=== PATIENT | female | born 1940 | race Caucasian/White ===

== ENCOUNTER 2021-04-27 19:00 | Observation (INO) ==
[2021-04-28] MEDS: Enoxaparin 40 MG/0.4 ML SYR SUBCUT SCH ×2 (01:23→21:24)
[2021-04-28] MEDS ORDERED: RISPERIDONE 0.25 MG PO SCH (09:00)
[2021-04-28] MEDS: Cholecalciferol (VIT D3) 1,000 unit TAB PO SCH (10:19)
[2021-04-28] MEDS: Aspirin EC 81 mg TAB.EC (enteric coated) PO SCH (10:20)
[2021-04-29] MEDS: Cholecalciferol (VIT D3) 1,000 unit TAB PO SCH (10:29)
[2021-04-29] MEDS: Aspirin EC 81 mg TAB.EC (enteric coated) PO SCH (10:31)
[2021-04-29] MEDS: Enoxaparin 40 MG/0.4 ML SYR SUBCUT SCH (22:24)
[2021-04-30] MEDS: Aspirin EC 81 mg TAB.EC (enteric coated) PO SCH (11:27)
[2021-04-30] MEDS: Cholecalciferol (VIT D3) 1,000 unit TAB PO SCH (11:28)
[2021-04-30 11:56] VITALS: BP 145/74
== END 2021-04-30 15:11 | disposition swing bed (61) ==
LOC: ED 19:00 → EDHOLD 19:00 → SSU 22:32
PROVIDERS: ADMIT Hospitalist; ATTEND Hospitalist

== ENCOUNTER 2021-04-30 14:46 | Inpatient (IN) ==
[2021-04-30] MEDS ORDERED: Enoxaparin 40 MG/0.4 ML SYR SUBCUT SCH ×2 (16:00)
[2021-04-30] MEDS: Enoxaparin 40 MG/0.4 ML SYR SUBCUT SCH (20:46)
[2021-05-01] MEDS: Aspirin EC 81 mg TAB.EC (enteric coated) PO SCH (09:41)
[2021-05-01] MEDS: Cholecalciferol (VIT D3) 1,000 unit TAB PO SCH (09:41)
[2021-05-01] MEDS: Enoxaparin 40 MG/0.4 ML SYR SUBCUT SCH (20:31)
[2021-05-02] MEDS: Aspirin EC 81 mg TAB.EC (enteric coated) PO SCH (15:30)
[2021-05-02] MEDS: Cholecalciferol (VIT D3) 1,000 unit TAB PO SCH (15:31)
[2021-05-02] MEDS: Enoxaparin 40 MG/0.4 ML SYR SUBCUT SCH (20:51)
[2021-05-03] MEDS: Aspirin EC 81 mg TAB.EC (enteric coated) PO SCH (10:50)
[2021-05-03] MEDS: Cholecalciferol (VIT D3) 1,000 unit TAB PO SCH (10:52)
[2021-05-03] MEDS: Enoxaparin 40 MG/0.4 ML SYR SUBCUT SCH (20:43)
[2021-05-04] MEDS: Cholecalciferol (VIT D3) 1,000 unit TAB PO SCH (09:26)
[2021-05-04] MEDS: Aspirin EC 81 mg TAB.EC (enteric coated) PO SCH (09:26)
[2021-05-04] MEDS: Enoxaparin 40 MG/0.4 ML SYR SUBCUT SCH (23:05)
[2021-05-05] MEDS: Aspirin EC 81 mg TAB.EC (enteric coated) PO SCH (09:30)
[2021-05-05] MEDS: Cholecalciferol (VIT D3) 1,000 unit TAB PO SCH (09:31)
[2021-05-05] MEDS: Enoxaparin 40 MG/0.4 ML SYR SUBCUT SCH (23:05)
[2021-05-06 08:40] LABS: Mean Platelet Volume 9.5 fL (7.4-10.4); Platelet Count 265 10^3/uL (150-450)
[2021-05-06 08:57] LABS: eGFR CKD-EPI 80.2 (>60)
[2021-05-06] MEDS: Aspirin EC 81 mg TAB.EC (enteric coated) PO SCH (09:54)
[2021-05-06] MEDS: Cholecalciferol (VIT D3) 1,000 unit TAB PO SCH (09:54)
[2021-05-06] MEDS: Enoxaparin 40 MG/0.4 ML SYR SUBCUT SCH (21:12)
[2021-05-07 12:21] LABS: ABS Eosinophils 0.1 10^3/ul (0-0.6); ABS Lymphocytes 0.9 10^3/ul (1.0-4.8); ABS Monocytes 0.6 10^3/ul (0-0.8); ABS Neutrophils 4.8 10^3/ul (1.5-7.7); Eosinophil % 0.9 %; Hematocrit 39 % (35-47); Lymphocyte % 13.3 %; Mean Corpuscular HGB Conc 33 g/dL (31-36); Mean Corpuscular Hemoglobin 30 pg (27-31); Mean Corpuscular Volume 89 fL (80-97); Mean Platelet Volume 9.8 fL (7.4-10.4); Platelet Count 276 10^3/uL (150-450); Red Blood Count 4.37 10^6 /uL (3.70-4.87); Red Cell Distribution Width 13 % (10-15); White Blood Count 6.4 10^3/uL (3.5-10.8)
[2021-05-07 12:35] LABS: Calcium 9.1 mg/dL (8.6-10.3); eGFR CKD-EPI 72.1 (>60)
[2021-05-07] MEDS: Aspirin EC 81 mg TAB.EC (enteric coated) PO SCH (14:35)
[2021-05-07] MEDS: Cholecalciferol (VIT D3) 1,000 unit TAB PO SCH (14:46)
[2021-05-07] MEDS: Enoxaparin 40 MG/0.4 ML SYR SUBCUT SCH (20:10)
[2021-05-08] MEDS: Aspirin EC 81 mg TAB.EC (enteric coated) PO SCH (09:06)
[2021-05-08] MEDS: Cholecalciferol (VIT D3) 1,000 unit TAB PO SCH (09:06)
[2021-05-08] MEDS: Enoxaparin 40 MG/0.4 ML SYR SUBCUT SCH (20:01)
[2021-05-09] MEDS: Cholecalciferol (VIT D3) 1,000 unit TAB PO SCH (09:37)
[2021-05-09] MEDS: Aspirin EC 81 mg TAB.EC (enteric coated) PO SCH (09:38)
[2021-05-09] MEDS: Enoxaparin 40 MG/0.4 ML SYR SUBCUT SCH (22:55)
[2021-05-10 07:48] VITALS: BP 113/58
[2021-05-10] MEDS: Aspirin EC 81 mg TAB.EC (enteric coated) PO SCH (08:33)
[2021-05-10] MEDS: Cholecalciferol (VIT D3) 1,000 unit TAB PO SCH (08:35)
== END 2021-05-10 09:30 | DRG 884 ==
LOC: SSU 15:18 → SUATTDRO 15:18
PROVIDERS: ADMIT Internal Medicine; ATTEND Hospitalist